=== PATIENT | female | born 1985 | race African-American/Black ===

== ENCOUNTER 2020-11-09 23:41 | Inpatient (IN) | payer OTHER, MEDICAID ==
[~2020-11-09] VITALS: Ht 160 cm; Wt 61.4 kg
[2020-11-10] MEDS ORDERED: SODIUM CHLORIDE 0.9% 1,000 ML IV ONE ×4 (01:15→11:00)
[2020-11-10 01:27] LABS: Basophils # (auto) 0.1 10 ^3/uL (0-0.2); Eosinophils # (auto) 0.2 10 ^3/uL (0-0.8); Eosinophils % (auto) 0.9 % (0.0-7.0); Monocytes # (auto) 1.5 10 ^3/uL (0-1.3); Monocytes % (auto) 7.8 % (0.0-12.0)
[2020-11-10 01:28] LABS: Basophils % (auto) 0.4 % (0.0-2.0); Lymphocytes % (auto) 15.2 % (10.0-50.0); Mean Corpuscular Hemoglobin 38.6 pg (28.0-32.0); Mean Corpuscular Hgb Conc. 36.1 g/dL (32.0-36.0); Mean Corpuscular Volume 106.8 fL (80.0-100.0); Neutrophils # (auto) 15.1 10 ^3/uL (1.6-8.6); Neutrophils % (auto) 75.7 % (37.0-80.0); Red Blood Cells 1.78 10^6/uL (4.0-5.20); White Blood Cell 19.9 10^3/uL (4.4-10.8)
[2020-11-10 01:40] LABS: Red Cell Distribution Width 21.1 % (11.8-14.3)
[2020-11-10 01:41] LABS: Hemoglobin 6.9 g/dL (12.2-16.2)
[2020-11-10 01:43] LABS: Alanine Aminotransferase 18 U/L (13-56); Albumin 3.4 g/dL (3.4-5.0); Anion Gap 5 (5-15); Aspartate Aminotransferase 25 U/L (15-37); BUN/Creatinine Ratio 13.3; Blood Urea Nitrogen 8 mg/dL (7-18); Calcium 7.6 mg/dL (8.5-10.1); Carbon Dioxide 21 mmol/L (21-32); Chloride 114 mmol/L (98-107); GFR African American 148 mL/min; GFR Non-African American 122 mL/min; Glucose 92 mg/dL (74-106); Potassium 3.7 mmol/L (3.5-5.1); Sodium 140 mmol/L (136-145)
[2020-11-10 01:47] LABS: Alkaline Phosphatase 60 U/L (45-117); Total Protein 7.6 g/dL (6.4-8.2)
[2020-11-10 02:41] LABS: % Iron Saturation 61.4 % (15-50)
[2020-11-10] MEDS: NOREPINEPHRINE 8 MG/250ML KIT 250 ML IV SCH (02:54)
[2020-11-10] MEDS ORDERED: IOHEXOL 300 MG/ML 100ML BOTTLE IJ ONE (04:15)
[2020-11-10] MEDS ORDERED: VANCOMYCIN 1GM/250ML 250 ML IV ONE (04:15)
[2020-11-10] MEDS ORDERED: CEFTRIAXONE SODIUM 2 GM in D5W 5% 50 ML IV ONE (04:15)
[2020-11-10 04:56] LABS: Urine Bacteria NONE SEEN /hpf (None Seen); Urine Blood Negative /uL (Negative); Urine Specific Gravity 1.009 (1.001-1.035); Urine WBC 3 /hpf (0 - 5)
[2020-11-10] MEDS ORDERED: SODIUM CHLORIDE 0.9% 1,000 ML IV SCH (11:00)
[2020-11-10] MEDS ORDERED: ACETAMINOPHEN 325 MG TAB PO PRN (11:15)
[2020-11-10] MEDS ORDERED: NITROGLYCERIN 0.4 MG SL TAB SL PRN ×3 (11:15)
[2020-11-10] MEDS ORDERED: DOCUSATE SOD 100 MG CAP PO PRN (11:15)
[2020-11-10] MEDS ORDERED: ASCORBIC ACID 500 MG TAB PO ONE ×2 (11:15)
[2020-11-10] MEDS ORDERED: D5W/SOD CHL 0.45% 1,000 ML IV SCH (11:15)
[2020-11-10] MEDS ORDERED: MULTIPLE VITAMINS W/ MINERALS TAB PO ONE ×2 (11:15)
[2020-11-10] MEDS ORDERED: HYDROcodone-ACET 5/325MG TAB PO PRN (11:15)
[2020-11-10] MEDS ORDERED: THIAMINE 100mg/ml INJ (200mg/2ml VIAL) IV ONE ×2 (11:15)
[2020-11-10] MEDS ORDERED: ONDANSETRON HCL 4 MG/2 ML VIAL IV PRN (11:15)
[2020-11-10] MEDS ORDERED: FERROUS SULFATE 325mg EC TAB PO ONE ×2 (11:15)
[2020-11-10] MEDS ORDERED: CYANOCOBALAMIN 500 MCG TAB PO ONE ×2 (11:15)
[2020-11-10] MEDS ORDERED: CEFEPIME 1 GM in SODIUM CHL 0.9% 50 ML IV ONE ×2 (11:15→11:30)
[2020-11-10] MEDS ORDERED: MORPHINE SULFATE INJECTION 2 MG/ML SYRG IV PRN ×4 (11:15)
[2020-11-10] MEDS ORDERED: FOLIC ACID 1 MG TAB PO ONE ×2 (11:15)
[2020-11-10] MEDS ORDERED: ALUM & MAG HYDROX-SIMETH LIQ(MAALOX) 30 ML PO PRN (11:15)
[2020-11-10] MEDS ORDERED: MULT-1018 PO (11:18)
[2020-11-10] MEDS ORDERED: CHOLECALCIFEROL (VITD3) 2,000 UNIT CAP/TAB PO ONE (11:45)
[2020-11-10 11:56] LABS: Cholesterol 90 mg/dL (< 200); HDL Cholesterol 39 mg/dL (40-59); LDL Cholesterol 44 mg/dL (< 100); Triglycerides 90 mg/dL (< 150)
[2020-11-10] MEDS ORDERED: FERROUS SULFATE 325mg EC TAB PO SCH (12:00)
[2020-11-10 12:15] LABS: Phosphorus 2.9 mg/dL (2.5-4.90)
[2020-11-10 12:50] LABS: Alcohol, Urine < 3.0 mg/dL (0-10)
[2020-11-10 12:59] LABS: Amphetamine Screen, Urine NEGATIVE (NEGATIVE); Barbiturate Scree,Urine NEGATIVE (NEGATIVE); Benzodiazephine Screen, Urine NEGATIVE (NEGATIVE); Cannabinoid Screen, Urine POSITIVE (NEGATIVE); Cocaine Screen, Urine NEGATIVE (NEGATIVE); Opiate Scree,Urine NEGATIVE (NEGATIVE); Phencyclidine Screen, Urine NEGATIVE (NEGATIVE)
[2020-11-10] MEDS ORDERED: CLINDAMYCIN 600MG IV 50 ML IV ONE (13:30)
[2020-11-10] MEDS ORDERED: CEFEPIME 1 GM in SODIUM CHL 0.9% 50 ML IV SCH (14:00)
[2020-11-10] MEDS: D5W/SOD CHL 0.45% 1,000 ML IV SCH (14:03)
[2020-11-10] MEDS: FERROUS SULFATE 325mg EC TAB PO SCH (18:09)
[2020-11-10] MEDS: CALCIUM W/VIT D (600MG/400IU) TAB PO SCH (18:10)
[2020-11-10] MEDS: CEFEPIME 1 GM in SODIUM CHL 0.9% 50 ML IV SCH (22:00)
[2020-11-10] MEDS: CLINDAMYCIN 600MG IV 50 ML IV SCH (22:00)
[2020-11-10] MEDS: ASCORBIC ACID 500 MG TAB PO SCH (22:00)
[2020-11-10] MEDS ORDERED: ASCORBIC ACID 500 MG TAB PO SCH (22:00)
[2020-11-10] MEDS: MORPHINE SULFATE INJECTION 2 MG/ML SYRG IV PRN (23:37)
[2020-11-10 23:40] VITALS: BP 113/64
[2020-11-11] VITALS (7 sets, daily range): BP systolic 99–111; BP diastolic 52–64
[2020-11-11] MEDS: CLINDAMYCIN 600MG IV 50 ML IV SCH ×4 (00:10→05:31)
[2020-11-11] MEDS: NOREPINEPHRINE 8 MG/250ML KIT 250 ML IV SCH (01:15)
[2020-11-11] MEDS: CEFEPIME 1 GM in SODIUM CHL 0.9% 50 ML IV SCH (06:00)
[2020-11-11] MEDS: CALCIUM W/VIT D (600MG/400IU) TAB PO SCH ×2 (08:37→18:28)
[2020-11-11] MEDS: MULTIPLE VITAMINS W/ MINERALS TAB PO SCH (08:37)
[2020-11-11] MEDS: CHOLECALCIFEROL (VITD3) 2,000 UNIT CAP/TAB PO SCH (08:37)
[2020-11-11] MEDS: ASPirin 81 mg TAB PO SCH (08:38)
[2020-11-11] MEDS: FERROUS SULFATE 325mg EC TAB PO SCH ×3 (08:38→18:28)
[2020-11-11] MEDS: ASCORBIC ACID 500 MG TAB PO SCH ×2 (08:38→20:41)
[2020-11-11] MEDS: CYANOCOBALAMIN 500 MCG TAB PO SCH (08:38)
[2020-11-11] MEDS: FOLIC ACID 1 MG TAB PO SCH (08:38)
[2020-11-11] MEDS ORDERED: FOLIC ACID 1 MG TAB PO SCH (10:00)
[2020-11-11] MEDS ORDERED: CYANOCOBALAMIN 500 MCG TAB PO SCH (10:00)
[2020-11-11] MEDS ORDERED: MULTIPLE VITAMINS W/ MINERALS TAB PO SCH (10:00)
[2020-11-11] MEDS ORDERED: VANCOMYCIN 1GM/250ML 250 ML IV ONE (11:15)
[2020-11-11] MEDS ORDERED: VANCOMYCIN PER PHARMACY 0 MG IV SCH (11:15)
[2020-11-11 12:35] LABS: Hematocrit 17.9 % (36.0-46.0); Mean Corpuscular Hemoglobin 39.1 pg (28.0-32.0); Mean Corpuscular Volume 105.4 fL (80.0-100.0); Red Blood Cells 1.69 10^6/uL (4.0-5.20); White Blood Cell 15.4 10^3/uL (4.4-10.8)
[2020-11-11 12:36] LABS: Red Cell Distribution Width 21.5 % (11.8-14.3)
[2020-11-11 12:37] LABS: Hemoglobin 6.6 g/dL (12.2-16.2)
[2020-11-11 12:38] LABS: Basophils % (manual) 0 (0.0-2.0); Blast Cells 0; Metamyelocytes % 0; Myelocytes % 0; Promyelocytes % 0; Reactive Lymphocytes 0
[2020-11-11 13:50] LABS: Mean Corpuscular Hgb Conc. 36.2 g/dL (32.0-36.0)
[2020-11-11] MEDS: D5W/SOD CHL 0.45% 1,000 ML IV SCH ×3 (13:55→23:49)
[2020-11-11 14:52] LABS: Band Neutrophils % (manual) 1; Eosinophils % (manual) 2 (0-7); Lymphocytes % (manual) 40 (10.0-50.0); Monocytes % (manual) 3 (0-12)
[2020-11-11] MEDS: cefTRIAXone 1GM/50ML D5W 50 ML IV SCH (18:28)
[2020-11-11] MEDS: VANCOMYCIN 1GM/250ML 250 ML IV SCH (20:38)
[2020-11-11] MEDS: HYDROcodone-ACET 5/325MG TAB PO PRN (20:45)
[2020-11-12] MEDS: VANCOMYCIN 1GM/250ML 250 ML IV SCH ×3 (04:00→20:10)
[2020-11-12 05:00] VITALS: BP 98/59
[2020-11-12] MEDS: HYDROcodone-ACET 5/325MG TAB PO PRN ×2 (05:55→20:20)
[2020-11-12 07:02] LABS: Basophils # (auto) 0.1 10 ^3/uL (0-0.2); Basophils % (auto) 0.7 % (0.0-2.0); White Blood Cell 12.7 10^3/uL (4.4-10.8)
[2020-11-12 07:06] LABS: Eosinophils # (auto) 0.5 10 ^3/uL (0-0.8); Eosinophils % (auto) 3.8 % (0.0-7.0); Hematocrit 19.3 % (36.0-46.0); Lymphocytes # (auto) 3.9 10 ^3/uL (0.4-5.4); Lymphocytes % (auto) 30.6 % (10.0-50.0); Mean Corpuscular Hemoglobin 37.2 pg (28.0-32.0); Mean Corpuscular Volume 103.4 fL (80.0-100.0); Monocytes # (auto) 1.2 10 ^3/uL (0-1.3); Monocytes % (auto) 9.2 % (0.0-12.0); Neutrophils # (auto) 7.1 10 ^3/uL (1.6-8.6); Neutrophils % (auto) 55.7 % (37.0-80.0); Nucleated Red Blood Cells % 0.4 %; Red Blood Cells 1.87 10^6/uL (4.0-5.20)
[2020-11-12 07:16] LABS: BUN/Creatinine Ratio 10.3; Potassium 3.1 mmol/L (3.5-5.1)
[2020-11-12 07:20] LABS: Red Cell Distribution Width 22.6 % (11.8-14.3)
[2020-11-12] MEDS: FERROUS SULFATE 325mg EC TAB PO SCH ×3 (08:00→18:00)
[2020-11-12] MEDS: CALCIUM W/VIT D (600MG/400IU) TAB PO SCH ×2 (08:00→18:00)
[2020-11-12] MEDS: cefTRIAXone 1GM/50ML D5W 50 ML IV SCH (09:00)
[2020-11-12] MEDS: FOLIC ACID 1 MG TAB PO SCH (10:00)
[2020-11-12] MEDS: CYANOCOBALAMIN 500 MCG TAB PO SCH (10:00)
[2020-11-12] MEDS: ASCORBIC ACID 500 MG TAB PO SCH ×2 (10:00→20:20)
[2020-11-12] MEDS: CHOLECALCIFEROL (VITD3) 2,000 UNIT CAP/TAB PO SCH (10:00)
[2020-11-12] MEDS: ASPirin 81 mg TAB PO SCH (10:00)
[2020-11-12] MEDS: MULTIPLE VITAMINS W/ MINERALS TAB PO SCH (10:00)
[2020-11-12] MEDS ORDERED: POTASSIUM CHL 20 Meq TABLET PO ONE (10:00)
[2020-11-12 13:00] VITALS: BP_SYST 141; BP_SYST 86; BP_DIAS 56; BP_DIAS 75
[2020-11-12] MEDS: LORazepam 0.5 MG TAB PO PRN ×2 (15:30→23:58)
[2020-11-12] MEDS: D5W/SOD CHL 0.45% 1,000 ML IV SCH (16:35)
[2020-11-12 17:07] VITALS: BP 98/49
[2020-11-12] MEDS: MORPHINE SULFATE INJECTION 2 MG/ML SYRG IV PRN (18:00)
[2020-11-12 22:00] VITALS: BP 108/64
[2020-11-13] MEDS: VANCOMYCIN 1GM/250ML 250 ML IV SCH ×2 (04:09→12:00)
[2020-11-13 05:00] VITALS: BP 108/64
[2020-11-13] MEDS: D5W/SOD CHL 0.45% 1,000 ML IV SCH (05:55)
[2020-11-13 06:33] LABS: Basophils # (auto) 0.1 10 ^3/uL (0-0.2); Eosinophils # (auto) 0.5 10 ^3/uL (0-0.8); Nucleated Red Blood Cells % 0.3 %; White Blood Cell 13.9 10^3/uL (4.4-10.8)
[2020-11-13 06:45] LABS: Calcium 8.4 mg/dL (8.5-10.1); Potassium 3.7 mmol/L (3.5-5.1)
[2020-11-13 06:48] LABS: BUN/Creatinine Ratio 8.1
[2020-11-13 07:06] LABS: Basophils % (auto) 0.9 % (0.0-2.0); Eosinophils % (auto) 3.4 % (0.0-7.0); Hemoglobin 7.1 g/dL (12.2-16.2); Lymphocytes % (auto) 28.6 % (10.0-50.0); Mean Corpuscular Hemoglobin 36.4 pg (28.0-32.0); Mean Corpuscular Hgb Conc. 35.3 g/dL (32.0-36.0); Mean Corpuscular Volume 103.1 fL (80.0-100.0); Monocytes # (auto) 1.5 10 ^3/uL (0-1.3); Monocytes % (auto) 11.1 % (0.0-12.0); Neutrophils # (auto) 7.8 10 ^3/uL (1.6-8.6); Red Blood Cells 1.94 10^6/uL (4.0-5.20); Red Cell Distribution Width 22.5 % (11.8-14.3)
[2020-11-13] MEDS: FERROUS SULFATE 325mg EC TAB PO SCH ×2 (08:00→12:00)
[2020-11-13] MEDS: CALCIUM W/VIT D (600MG/400IU) TAB PO SCH (08:00)
[2020-11-13 09:00] VITALS: BP 112/54
[2020-11-13] MEDS: cefTRIAXone 1GM/50ML D5W 50 ML IV SCH (09:00)
[2020-11-13] MEDS: FOLIC ACID 1 MG TAB PO SCH (10:00)
[2020-11-13] MEDS: CYANOCOBALAMIN 500 MCG TAB PO SCH (10:00)
[2020-11-13] MEDS: MULTIPLE VITAMINS W/ MINERALS TAB PO SCH (10:00)
[2020-11-13] MEDS: ASPirin 81 mg TAB PO SCH (10:00)
[2020-11-13] MEDS: CHOLECALCIFEROL (VITD3) 2,000 UNIT CAP/TAB PO SCH (10:00)
[2020-11-13] MEDS: ASCORBIC ACID 500 MG TAB PO SCH (10:00)
[2020-11-13 10:55] VITALS: BP 101/68
== END 2020-11-13 13:30 | disposition home or self-care (01) | DRG 871 ==
LOC: EDBD 23:41 → ER 23:45 → OVERFLOW 11-10 11:01 → CENTRAL 11-10 21:36 → TELE-CENTR 11-11 01:53
PROVIDERS: ADMIT Hospitalist; ATTEND Family Medicine
PROC: 30233N1 Transfusion of Nonautologous Red Blood Cells into Peripheral Vein, Percutaneous Approach (ICD-10-PCS; principal; 2020-11-11)
DX: A41.9 Sepsis, unspecified organism (principal); D57.00 Hb-SS disease with crisis, unspecified; R65.21 Severe sepsis with septic shock; N12 Tubulo-interstitial nephritis, not specified as acute or chronic; D63.8 Anemia in other chronic diseases classified elsewhere; E83.51 Hypocalcemia; R55 Syncope and collapse; N92.0 Excessive and frequent menstruation with regular cycle; E86.0 Dehydration; Z20.822 Contact with and (suspected) exposure to COVID-19; F12.10 Cannabis abuse, uncomplicated; Z82.49 Family history of ischemic heart disease and other diseases of the circulatory system; Z83.3 Family history of diabetes mellitus; Z90.49 Acquired absence of other specified parts of digestive tract; Z91.19 Patient's noncompliance with other medical treatment and regimen; Z98.51 Tubal ligation status; Z71.51 Drug abuse counseling and surveillance of drug abuser
CPT/HCPCS: 36415; 70450; 71045; 71260; 74176; 74177; 76830; 76856; 80048; 80053; 80061; 80202; 80307; 81001; 82728; 83036; 83540; 83550; 83605; 83615; 83690; 83735; 84100; 84443; 84484; 84702; 85007; 85025; 85027; 85045; 86850; 86860; 86870; 86880; 86900; 86901; 86905; 86906; 86920; 86922; 86970; 86971; 87040; 87077; 87086; 87088; 87186; 87426; 93005; 96361; 96365; 99291; G0378; J0696; J3490; J7060

== ENCOUNTER 2021-12-19 11:08 | Emergency (ER) | payer OTHER, MEDICAID | END 2021-12-19 12:03 | disposition left against medical advice (07) | LOC: ER 11:08 | DX: D57.00 Hb-SS disease with crisis, unspecified (principal); Z53.21 Procedure and treatment not carried out due to patient leaving prior to being seen by health care provider ==

== ENCOUNTER 2021-12-19 12:19 | Inpatient (IN) | payer OTHER, MEDICAID ==
[~2021-12-19] VITALS: Ht 170.2 cm; Wt 57.2 kg
[2021-12-19] MEDS ORDERED: SODIUM CHLORIDE 0.9% 1,000 ML IV ONE (13:00)
[2021-12-19] MEDS ORDERED: ONDANSETRON HCL 4 MG/2 ML VIAL IV ONE (13:00)
[2021-12-19] MEDS ORDERED: MORPHINE SULFATE INJ 2 MG/ml SYRG IV ONE (13:00)
[2021-12-19 13:22] LABS: Basophils # (auto) 0.1 10 ^3/uL (0-0.2); Eosinophils # (auto) 0.1 10 ^3/uL (0-0.8); Hemoglobin 8.7 g/dL (12.2-16.2); Nucleated Red Blood Cells % 0.2 %; White Blood Cell 11.6 10^3/uL (4.4-10.8)
[2021-12-19 13:24] LABS: Eosinophils % (auto) 0.6 % (0.0-7.0); Hematocrit 25.9 % (36.0-46.0); Lymphocytes # (auto) 1.8 10 ^3/uL (0.4-5.4); Lymphocytes % (auto) 15.1 % (10.0-50.0); Mean Corpuscular Hemoglobin 35.4 pg (28.0-32.0); Mean Corpuscular Hgb Conc. 33.7 g/dL (32.0-36.0); Mean Corpuscular Volume 105.1 fL (80.0-100.0); Monocytes # (auto) 1.2 10 ^3/uL (0-1.3); Monocytes % (auto) 10.6 % (0.0-12.0); Neutrophils # (auto) 8.5 10 ^3/uL (1.6-8.6); Neutrophils % (auto) 72.7 % (37.0-80.0); Red Blood Cells 2.47 10^6/uL (4.0-5.20); Red Cell Distribution Width 17.5 % (11.8-14.3)
[2021-12-19 13:47] LABS: Albumin 4.3 g/dL (3.4-5.0); Calcium 8.9 mg/dL (8.5-10.1); Magnesium 2.4 mg/dL (1.6-2.6); Potassium 3.6 mmol/L (3.5-5.1)
[2021-12-19 13:52] LABS: BUN/Creatinine Ratio 15.3; Bilirubin, Total 2.9 mg/dL (0.2-1.0); Total Protein 9.4 g/dL (6.4-8.2)
[2021-12-19 18:39] LABS: Urine Bacteria FEW /hpf (None Seen); Urine Blood TRACE /uL (Negative); Urine Specific Gravity 1.012 (1.001-1.035); Urine WBC 1 /hpf (0 - 5)
[2021-12-19] MEDS ORDERED: ACETAMINOPHEN 325 MG TAB PO PRN (20:15)
[2021-12-19] MEDS: SODIUM CHLORIDE 0.9% 1,000 ML IV SCH (20:15)
[2021-12-19] MEDS ORDERED: DOCUSATE SOD 100 MG CAP PO PRN (20:15)
[2021-12-19] MEDS ORDERED: PANTOPRAZOLE 40 MG/10 ML VIAL INJ IV ONE (20:30)
[2021-12-20] MEDS: SODIUM CHLORIDE 0.9% 1,000 ML IV SCH ×2 (02:57→09:37)
[2021-12-20 06:08] LABS: Potassium 3.8 mmol/L (3.5-5.1)
[2021-12-20 06:10] LABS: Basophils # (auto) 0.1 10 ^3/uL (0-0.2); Basophils % (auto) 0.8 % (0.0-2.0); Hematocrit 20.6 % (36.0-46.0); Hemoglobin 7.4 g/dL (12.2-16.2); Mean Corpuscular Hemoglobin 37.4 pg (28.0-32.0); Monocytes # (auto) 1.8 10 ^3/uL (0-1.3); White Blood Cell 12.5 10^3/uL (4.4-10.8)
[2021-12-20 06:12] LABS: Eosinophils # (auto) 0 10 ^3/uL (0-0.8); Eosinophils % (auto) 0.3 % (0.0-7.0); Lymphocytes # (auto) 3.2 10 ^3/uL (0.4-5.4); Lymphocytes % (auto) 25.2 % (10.0-50.0); Mean Corpuscular Hgb Conc. 36.1 g/dL (32.0-36.0); Monocytes % (auto) 14.4 % (0.0-12.0); Neutrophils # (auto) 7.4 10 ^3/uL (1.6-8.6); Neutrophils % (auto) 59.3 % (37.0-80.0); Nucleated Red Blood Cells % 0.2 %; Red Blood Cells 1.99 10^6/uL (4.0-5.20); Red Cell Distribution Width 17.1 % (11.8-14.3)
[2021-12-20 06:14] LABS: BUN/Creatinine Ratio 24.6; Bilirubin, Total 2.8 mg/dL (0.2-1.0); Calcium 8.8 mg/dL (8.5-10.1); Total Protein 8.1 g/dL (6.4-8.2)
[2021-12-20 06:21] LABS: Mean Corpuscular Volume 103.7 fL (80.0-100.0)
[2021-12-20] MEDS: PANTOPRAZOLE 40 MG/10 ML VIAL INJ IV SCH (09:36)
[2021-12-20] MEDS: ONDANSETRON HCL 4 MG/2 ML VIAL IV PRN ×2 (09:36→15:50)
[2021-12-20] MEDS: MORPHINE SULFATE INJ 2 MG/ml SYRG IV PRN ×2 (09:38→15:51)
[2021-12-20] MEDS ORDERED: ENOXAPARIN SOD 40 MG/0.4 ML SYRINGE SC SCH (10:00)
[2021-12-20 15:58] VITALS: BP 97/72
[2021-12-20] MEDS: FOLIC ACID 1 MG TAB PO SCH (18:24)
[2021-12-20] MEDS: MULTIPLE VITAMIN TAB PO SCH (18:25)
[2021-12-20] MEDS: HYDROcodone-ACET 5/325MG TAB PO PRN (21:20)
[2021-12-20] MEDS: PIPERACILLIN-TAZOB 3.375GM 100 ML IV SCH (21:20)
[2021-12-20 22:00] VITALS: BP 92/50
[2021-12-21] MEDS: SODIUM CHLORIDE 0.9% 1,000 ML IV SCH ×5 (03:50→21:42)
[2021-12-21 05:00] VITALS: BP 86/51
[2021-12-21] MEDS: PIPERACILLIN-TAZOB 3.375GM 100 ML IV SCH ×3 (05:54→21:42)
[2021-12-21 06:10] LABS: BUN/Creatinine Ratio 20.8; Calcium 8.2 mg/dL (8.5-10.1); Potassium 4.4 mmol/L (3.5-5.1)
[2021-12-21 06:48] LABS: Basophils # (auto) 0.1 10 ^3/uL (0-0.2); Basophils % (auto) 1.4 % (0.0-2.0); Eosinophils # (auto) 0.3 10 ^3/uL (0-0.8); Eosinophils % (auto) 3.4 % (0.0-7.0); Hematocrit 17.7 % (36.0-46.0); Lymphocytes # (auto) 2.5 10 ^3/uL (0.4-5.4); Lymphocytes % (auto) 30.6 % (10.0-50.0); Mean Corpuscular Hemoglobin 36.8 pg (28.0-32.0); Mean Corpuscular Hgb Conc. 36.3 g/dL (32.0-36.0); Mean Corpuscular Volume 101.4 fL (80.0-100.0); Monocytes # (auto) 1.1 10 ^3/uL (0-1.3); Monocytes % (auto) 13.7 % (0.0-12.0); Neutrophils # (auto) 4.1 10 ^3/uL (1.6-8.6); Neutrophils % (auto) 50.9 % (37.0-80.0); Nucleated Red Blood Cells % 0.6 %; Red Blood Cells 1.75 10^6/uL (4.0-5.20); Red Cell Distribution Width 17.9 % (11.8-14.3)
[2021-12-21 06:51] LABS: Hemoglobin 6.4 g/dL (12.2-16.2)
[2021-12-21 09:00] VITALS: BP 107/56
[2021-12-21] MEDS: MULTIPLE VITAMIN TAB PO SCH (11:19)
[2021-12-21] MEDS: PANTOPRAZOLE 40 MG/10 ML VIAL INJ IV SCH (11:19)
[2021-12-21] MEDS: HYDROcodone-ACET 5/325MG TAB PO PRN (11:19)
[2021-12-21] MEDS: FOLIC ACID 1 MG TAB PO SCH (11:19)
[2021-12-21] MEDS: ONDANSETRON HCL 4 MG/2 ML VIAL IV PRN ×2 (11:33→18:29)
[2021-12-21] MEDS: MORPHINE SULFATE INJ 2 MG/ml SYRG IV PRN ×2 (11:34→18:30)
[2021-12-21 13:00] VITALS: BP 101/63
[2021-12-21 17:01] VITALS: BP 104/50
[2021-12-21 22:00] VITALS: BP 97/56
[2021-12-21] MEDS ORDERED: IBUPROFEN 600 MG TAB PO ONE (23:00)
[2021-12-22] VITALS (7 sets, daily range): BP systolic 94–102; BP diastolic 44–52
[2021-12-22] MEDS: SODIUM CHLORIDE 0.9% 1,000 ML IV SCH (04:14)
[2021-12-22] MEDS: PIPERACILLIN-TAZOB 3.375GM 100 ML IV SCH (06:00)
[2021-12-22 06:23] LABS: Basophils # (auto) 0.1 10 ^3/uL (0-0.2); Eosinophils # (auto) 0.3 10 ^3/uL (0-0.8); Lymphocytes # (auto) 3.2 10 ^3/uL (0.4-5.4); Lymphocytes % (auto) 32.9 % (10.0-50.0); Mean Corpuscular Hemoglobin 36.5 pg (28.0-32.0); Monocytes # (auto) 1.2 10 ^3/uL (0-1.3); Red Blood Cells 1.77 10^6/uL (4.0-5.20)
[2021-12-22 06:26] LABS: Eosinophils % (auto) 2.9 % (0.0-7.0); Hematocrit 17.6 % (36.0-46.0); Mean Corpuscular Volume 99.7 fL (80.0-100.0); Monocytes % (auto) 12.4 % (0.0-12.0); Neutrophils % (auto) 50.8 % (37.0-80.0); Nucleated Red Blood Cells % 1.5 %; Red Cell Distribution Width 19.5 % (11.8-14.3); White Blood Cell 9.8 10^3/uL (4.4-10.8)
[2021-12-22 06:30] LABS: Albumin 3.3 g/dL (3.4-5.0); BUN/Creatinine Ratio 11.5; Potassium 4.5 mmol/L (3.5-5.1)
[2021-12-22 06:33] LABS: Bilirubin, Total 2.4 mg/dL (0.2-1.0); Total Protein 6.9 g/dL (6.4-8.2)
[2021-12-22 07:00] LABS: Hemoglobin 6.4 g/dL (12.2-16.2); Mean Corpuscular Hgb Conc. 36.6 g/dL (32.0-36.0)
[2021-12-22] MEDS: FOLIC ACID 1 MG TAB PO SCH (09:21)
[2021-12-22] MEDS: PANTOPRAZOLE 40 MG/10 ML VIAL INJ IV SCH (09:21)
[2021-12-22] MEDS: MULTIPLE VITAMIN TAB PO SCH (09:22)
[2021-12-22] MEDS ORDERED: HYDR-4902 PO ×2 (09:57)
[2021-12-22] MEDS ORDERED: MULT-351 PO ×2 (09:57)
[2021-12-22] MEDS ORDERED: FOLITAB22 PO ×2 (09:57)
[2021-12-22 10:56] LABS: Hemoglobin 7.7 g/dL (12.2-16.2)
[2021-12-22 10:58] LABS: Hematocrit 21.4 % (36.0-46.0)
== END 2021-12-22 13:02 | disposition home or self-care (01) | DRG 811 ==
LOC: ER 12:19 → OVERFLOW 20:10 → CENTRAL 12-20 14:57
PROVIDERS: ADMIT Nurse Practitioner Family; ATTEND Nurse Practitioner Acute Care
PROC: 30233N1 Transfusion of Nonautologous Red Blood Cells into Peripheral Vein, Percutaneous Approach (ICD-10-PCS; principal; 2021-12-22)
DX: D57.00 Hb-SS disease with crisis, unspecified (principal); E43 Unspecified severe protein-calorie malnutrition; Z68.1 Body mass index [BMI] 19.9 or less, adult; D72.829 Elevated white blood cell count, unspecified; R74.01 Elevation of levels of liver transaminase levels; D64.9 Anemia, unspecified; Z20.822 Contact with and (suspected) exposure to COVID-19; Z90.49 Acquired absence of other specified parts of digestive tract
CPT/HCPCS: 36415; 71046; 71250; 74176; 80048; 80053; 81001; 83735; 84702; 85014; 85018; 85025; 85045; 86850; 86870; 86900; 86901; 86922; 96361; 96374; 96375; C9113; G0378; J2405; J2543

== ENCOUNTER 2023-10-22 13:01 | Emergency (ER) | payer OTHER, MEDICAID ==
[~2023-10-22] VITALS: Ht 170.2 cm; Wt 65.1 kg
[~2023-10-22 13:01] MED LIST: FOLITAB22 PO; HYDR-4902 PO; MULT-351 PO
[2023-10-22 15:00] VITALS: BP 108/62; PULSE 78; RESP 18; TEMP 98.8; O2SAT 96
[2023-10-22] MEDS ORDERED: CYCL-837 PO (15:24)
[2023-10-22] MEDS ORDERED: LIDO5DIS21 TOP (15:24)
[2023-10-22] MEDS ORDERED: NAPR-746 PO (15:24)
[2023-10-22] MEDS: HYDROcodone-ACET 5/325MG TAB PO ONE (15:34)
[2023-10-22] MEDS: KETOROLAC TROMETH 30 MG/ML 1ML VIAL IM ONE (15:35)
== END 2023-10-22 15:25 | disposition home or self-care (01) ==
LOC: ER 13:06
DX: M54.59 Other low back pain (principal); Z79.899 Other long term (current) drug therapy; Z79.1 Long term (current) use of non-steroidal anti-inflammatories (NSAID); Z79.891 Long term (current) use of opiate analgesic; Z90.49 Acquired absence of other specified parts of digestive tract; Z98.890 Other specified postprocedural states; V89.2XXA Person injured in unspecified motor-vehicle accident, traffic, initial encounter; Y93.89 Activity, other specified; Y92.89 Other specified places as the place of occurrence of the external cause; Y99.8 Other external cause status
CPT/HCPCS: 96372; 99283; J1885